=== PATIENT | male | born 1990 | race Caucasian/White ===

== ENCOUNTER 2022-10-06 13:00 | Emergency (ER) | payer BC ==
[~2022-10-06] VITALS: Ht 185.4 cm; Wt 83.9 kg
[2022-10-06 13:30] VITALS: BP 99/69
[2022-10-06 14:18] VITALS: BP 135/93
[2022-10-06 14:30] VITALS: BP 136/93
== END 2022-10-06 15:08 | disposition home or self-care (01) | DRG 90 ==
LOC: ED 13:00
DX: S06.0X0A Concussion without loss of consciousness, initial encounter (principal); I10 Essential (primary) hypertension; W19.XXXA Unspecified fall, initial encounter; Y92.009 Unspecified place in unspecified non-institutional (private) residence as the place of occurrence of the external cause